=== PATIENT | female | born 1935 | race Caucasian/White ===

== ENCOUNTER → 2020-08-16 | Outpatient (CLI) | payer MEDICARE ==
[~2020-08-16] MED LIST: ECOTRIN81 MG PO; FLONASE 0.05% N16 GM; KLONOPIN TAB 00.5 MG PO; NORCO 5-325 TA1 EACH PO; ZYRTEC10 M3 PO; ZYVOX600 MG PO
== END ==
LOC: HEART CORB 07-31 14:30
DX: I27.20 Pulmonary hypertension, unspecified (principal); I08.3 Combined rheumatic disorders of mitral, aortic and tricuspid valves; R93.1 Abnormal findings on diagnostic imaging of heart and coronary circulation
CPT/HCPCS: 93306